=== PATIENT | male | born 1965 | race Caucasian/White ===

== ENCOUNTER 2019-03-26 05:01 | Inpatient (IN) ==
--- NOTE | 2019-03-19 16:33 | PAT Medication Instructions ---
Medication Instructions Date of Service March 19, 2019 Home Medications adalimumab [Humira] 40 mg SUBCUT DIRECTED ibuprofen 200 mg PO QID PRN lisinopril-hydrochlorothiazide 1 tab PO QAM tamsulosin 0.4 mg PO QPM ASK your surgeon for instructions ibuprofen 200 mg PO QID PRN ASK your prescriber and surgeon adalimumab [Humira] 40 mg SUBCUT DIRECTED DO NOT take the morning of surgery lisinopril-hydrochlorothiazide 1 tab PO QAM Take evening before surgery tamsulosin 0.4 mg PO QPM Other Notes If you have any questions please call us at [phone] or [phone] or [phone] or [phone]
--- NOTE | 2019-03-20 14:01 | Anesthesiology Consultation ---
Date of Service March 20, 2019 Assessment & Plan (1) Encounter for pre-operative examination: Chart Review Chart Review: Acceptable Risk for Surgery, Pending: Refer to Additional Notes / Consult section (preop testing (labs, EKG, CXR)) and Patient seen in Pre Admission Testing Consults Requested none Teaching & Discussion Pre-Anesthesia Teaching/Discussion Notes: Instructed NPO after midnight before surgery,except medications with 15 cc of water. Medication instructions provided according to the PAT guidelines. ASA ASA3 Proposed Anesthesia Anesthesia Type: General and MAC Spinal History Surgery Operation Date: 03/26/19 09:05 Proposed Procedures p Left Anterior Total Hip Arthroplasty - Sid Spangler, Height/Weight Height: 5 ft 10 in Weight: 108.4 kg Allergies Allergy/AdvReac Type Severity Reaction Status Date / Time Penicillins Allergy Unknown CHILD - Verified 03/18/19 14:14 UNKNOWN Medications Home Medications Medication Instructions Recorded Confirmed Last Taken adalimumab [Humira] 40 mg SUBCUT DIRECTED 03/18/19 03/18/19 Unknown ibuprofen 200 mg PO QID PRN 03/18/19 03/18/19 Unknown lisinopril-hydrochlorothiazide 1 tab PO QAM 03/18/19 03/18/19 Unknown tamsulosin 0.4 mg PO QPM 03/18/19 03/18/19 Unknown Past Medical History Medical History History of nocturia no recent issues Hypertension Obesity Osteoarthritis Psoriatic arthritis on Humira Exercise / Class Metabolic Activity III < 4 Walking/Shop/Light housework Past Surgical History Surgical History History of arthroscopic knee surgery RIGHT AND LEFT History of vasectomy Hx of tonsillectomy Past Anesthesia History No Hx of Anesthesia Complications and No Family Hx of Anesthesia Complications Mother: "Goes nuts" with anesthesia emergence ? History of PONV No Hx of PONV and Hx of Motion Sickness (rare, "mild" reaction) Social History Smoking Status: Never smoker Do You Dip or Chew Tobacco: Yes (1 can/day- Advised NPO*) Hx Alcohol Use: No Hx Substance Use: No Review of Systems Patient denies chest pain, shortness of breath, dyspnea on exertion, reflux, cough, wheezing, palpitations. Physical Exam Vital Signs VITALS BP 131/86 P 78 TEMP 98.0 SP02 97%RA RESP 18 PHYSICAL Full neck and c-spine range of motion. Full TMJ range of motion. TMD 3 finger breaths Mallampati Score 3 Dentition: missing molars Lungs: clear throughout to auscultation Cardiac: regular rate and rhythm, no murmurs noted Spine: normal Carotid arteries: negative bruit Extremities: no edema Left lazy eye Testing Laboratory Results 03/20/19 14:12 03/20/19 14:12 PT 10.9 Seconds (9.0-12.0) 03/20/19 14:12 INR 1.1 (0.9-1.1) 03/20/19 14:12 APTT 26.5 Seconds (21.0-31.0) 03/20/19 14:12 Blood Type B Positive 03/20/19 14:12 Antibody Screen NEGATIVE 03/20/19 14:12 Electrocardiogram Date: 03/20/19 Findings: + NSR @ (atr 72) Chest X-Ray Date: 03/20/19 Findings: + NAD
[2019-03-20 14:48] LABS: Basophils # (auto) 0.05 K/uL (0-0.2); Basophils % (auto) 0.6 %; Eosinophils # (auto) 0.14 K/uL (0-0.5); Eosinophils % (auto) 1.8 %; Hematocrit (blood only) 43.9 % (42-52); Hemoglobin 14.6 g/dL (14.0-18.0); Immature Granulocytes # (auto) 0.02 K/uL (0.00-0.02); Immature Granulocytes % (auto) 0.3 %; Lymphocytes # (auto) 1.33 K/uL (1.2-3.4); Lymphocytes % (auto) 16.8 %; Mean Corpuscular Hemoglobin 31.1 pg (25-34); Mean Corpuscular Hgb Conc 33.3 g/dL (32-36); Mean Corpuscular Volume 93.6 fL (80-100); Mean Platelet Volume 10.6 fL (7.4-10.4); Monocytes # (auto) 0.74 K/uL (0.11-0.59); Monocytes % (auto) 9.3 %; Neutrophils # (auto) 5.65 K/uL (1.4-6.5); Neutrophils % (auto) 71.2 %; Platelet Count 225 K/uL (130-400); RDW Coefficient of Variation 12.7 % (11.5-14.5); RDW Standard Deviation 43.4 fL (36.4-46.3); Red Blood Count 4.69 M/uL (4.7-6.1); White Blood Count 7.93 K/uL (4.8-10.8)
--- NOTE | 2019-03-20 14:50 | XRay Report ---
XR chest Pre-admission PA/Lat CLINICAL HISTORY: Preoperative chest COMPARISON STUDY: No previous studies for comparison. FINDINGS: The cardiac and mediastinal contours are normal. There is no evidence of focal pulmonary co nsolidation. There is no evidence of failure. No pleural effusions are visualized.[ IMPRESSION: No active disease in the chest. Electronically signed by: Dandre Andrews M.D. 03/20/2019 2:49 PM
[2019-03-20 14:56] LABS: BUN Creatinine Ratio 21.4 (10-20); Calcium 8.9 mg/dl (8.5-10.1); Creatinine Clr Calc Pharmacy 111.9 ml/min; Est GFR (African American) 107.5; Est GFR (Non-African American) 92.7; Potassium 3.6 mmol/L (3.5-5.1)
[2019-03-20 15:01] LABS: INR 1.1 (0.9-1.1); Partial Thromboplastin Time 26.5 Seconds (21.0-31.0); Prothrombin Time 10.9 Seconds (9.0-12.0)
[2019-03-26] MEDS ORDERED: LR 15ML/HR IV SCH (06:00)
[2019-03-26] MEDS ORDERED: ROPIVACAINE 0.5% HCL/PF 150 MG, BUPIVACAINE 0.5% MPF 30 ML, EPINEPHrine 30MG/30ML (OR U... INSTIL SCH (06:00)
[2019-03-26] MEDS ORDERED: ACETAMINOPHEN 500 MG TAB PO SCH (06:00)
[2019-03-26] MEDS ORDERED: TRANEXAMIC ACID 1,000 MG **IV Pre-op IV SCH (06:00)
[2019-03-26] MEDS ORDERED: LR 60ML/HR IV SCH (06:00)
[2019-03-26] MEDS ORDERED: GABAPENTIN 600 MG DOSE PO SCH (06:00)
[2019-03-26] MEDS ORDERED: FAMOTIDINE 20 MG TAB PO SCH (06:00)
[2019-03-26] MEDS ORDERED: CEFAZOLIN 2000MG 2,000 MG/15 ML SYR IV SCH (06:00)
--- NOTE | 2019-03-26 06:18 | History & Physical Report ---
Date of Service March 26, 2019 Assessment & Plan (1) Osteoarthritis of left hip: We will proceed with a left anterior total hip arthroplasty. Postoperatively he will be started on aspirin for DVT prophylaxis. He will be kept overnight in the hospital for postop medical management. He will talk to case management about physical therapy upon discharge. Present on Admission?: Yes History of Present Illness Chief Complaint: Primary osteoarthritis of the left hip Primary Care Provider: Helga Ulrich Evita is a 53-year-old male who is been dealing with a long time history of left hip and groin pain. X-rays and clinical examination have been diagnostic for primary osteoarthritis of the left hip. After failing conservative treatment, he has elected to proceed with a left anterior total hip arthroplasty. Allergies Allergy/AdvReac Type Severity Reaction Status Date / Time Penicillins Allergy Unknown CHILD - Verified 03/26/19 05:26 UNKNOWN Home Medications Home Medications Medication Instructions Recorded Confirmed Type adalimumab [Humira] 40 mg SUBCUT DIRECTED 03/18/19 03/26/19 History ibuprofen 200 mg PO QID PRN 03/18/19 03/26/19 History lisinopril-hydrochlorothiazide 1 tab PO QAM 03/18/19 03/26/19 History tamsulosin 0.4 mg PO QPM 03/18/19 03/26/19 History Past Med/Surg History Medical History History of nocturia no recent issues Hypertension Obesity Osteoarthritis Psoriatic arthritis on Humira Surgical History History of arthroscopic knee surgery RIGHT AND LEFT History of vasectomy Hx of tonsillectomy Social History Preferred Language: Slovenian Communication Ability: Effective Beliefs That Will Affect Care: None Current Living Situation: Spouse and Family Feels Safe at Home: Yes Smoking Status: Never smoker Do You Dip or Chew Tobacco: Yes (1 can/day- Advised NPO*) ; Second Hand Exposure: Yes (SOCIALLY) ; Tobacco Cessation Education Requested by Patient: Yes Hx Alcohol Use: No Hx Substance Use: No Review of Systems All systems reviewed & are unremarkable except as noted in HPI & below Physical Exam Constitutional: WD/WN, vitals as above Eyes: PERRL, conjunctivae normal, anicteric sclerae ENMT: external ear and nose normal, oropharynx normal Neck: trachea midline, no thyromegaly Respiratory: normal respiratory effort Cardiovascular: RRR, no murmur, no edema Gastrointestinal (Abdomen): normal bowel sounds, soft, nontender, no hepatosplenomegaly Musculoskeletal: Physical examination of the left hip reveals decreased range of motion with flexion, internal and external rotation. There is significant groin pain with forced internal rotation of the hip his leg lengths are essentially equal. Psychiatric: A+Ox3, euthymic affect Results & Data Vital Signs (Past 12 Hours) Vital Signs Temp Pulse Resp BP Pulse Ox 03/26/19 05:31 36.6 C 83 18 138/91 97 Diagnostic Findings Radiographs of the left hip and pelvis demonstrate advanced osteoarthritis with joint space narrowing osteophyte formation and [id number] articulation.
[2019-03-26] MEDS ORDERED: BUPIVACAINE 0.5 % 5 MG/1 ML PF 10ML VIAL ONE (06:19)
--- NOTE | 2019-03-26 06:25 | History & Physical Bridge Note ---
Date of Service March 26, 2019 History & Physical Bridge Note I have examined the patient, reviewed the History & Physical and in the interval since the performance of the History & Physical I have noted the following changes of clinical significance: no changes noted
[2019-03-26] MEDS ORDERED: TRANEXAMIC ACID 1,000 MG **IV Intra-op IV SCH (06:30)
[2019-03-26] MEDS ORDERED: LIDOCAINE HCL 2% 2 ML VIAL/AMP(20MG/ML) INFIL ONE (06:40)
[2019-03-26] MEDS ORDERED: fentaNYL citrate 100 MCG/2 ML VIAL ONE (06:40)
[2019-03-26] MEDS ORDERED: MIDAZOLAM HCL 1 MG/ML 2ML VIAL ONE ×2 (06:40→08:40)
[2019-03-26] MEDS ORDERED: PROPOFOL IV EMULSION 10 MG/ML 20 ML VIAL IV ONE ×2 (06:40→08:54)
[2019-03-26] MEDS ORDERED: CEFAZOLIN 2,000 MG/15 ML IV PUSH IV ONE (06:50)
[2019-03-26] MEDS ORDERED: ORTHO JOINT ANESTHETIC ONE (06:52)
[2019-03-26] MEDS ORDERED: ePHEDrine sulfate 50 MG/ML AMP IV PRN (07:29)
[2019-03-26] MEDS ORDERED: fentaNYL citrate 100 MCG/2 ML VIAL IV PRN (07:29)
[2019-03-26] MEDS ORDERED: ATROPINE SULFATE 0.1 MG/ML 10ML SYR IV PRN (07:29)
[2019-03-26] MEDS ORDERED: MoRPHine SULFATE 10 MG/ML CARP/VIAL IV PRN (07:29)
[2019-03-26] MEDS ORDERED: ONDANSETRON INJ 2 MG/ML 2 ML VIAL IV PRN ×2 (07:29→10:39)
--- NOTE | 2019-03-26 08:53 | Fluoroscopy Report ---
FL hip LT 1V CLINICAL HISTORY: LEFT ANTERIOR TOTAL HIP ARTHROPLASTY COMPARISON STUDY: None. FLUOROSCOPY TIME: 49 seconds. FINDINGS: 2 fluoroscopic spot images of the left hip demonstrate a left total arthroplasty. The hardw are appears intact. No fracture or dislocation. IMPRESSION: Fluoroscopy provided for left total hip arthroplasty. Electronically signed by: John Alfredo M.D. 03/26/2019 8:52 AM
--- NOTE | 2019-03-26 09:01 | Operative Report ---
Post Operative Report Pre & Post Diagnosis Operation Date: 03/26/19 07:15 Pre-Op Diagnosis: LEFT HIP DEGENERATIVE JOINT DISEASE W/HIP PAIN Post-Op Diagnosis: LEFT HIP DEGENERATIVE JOINT DISEASE W/HIP PAIN Procedure Operation Date: 03/26/19 07:15 Actual Procedures p Left Anterior Total Hip Arthroplasty(Left) - Sid Spangler DO Surgeon Sid Spangler DO Director Occupational Sid rBewster PAC Estimated Blood Loss 300 Findings Consistent with Post-Op Diagnosis Specimens Left femoral head Complications none Disposition Disposition: Recovery Room Indications Evita is a pleasant 53-year-old male who presented my office with complaints of bilateral hip and groin pain. X-rays and clinical examination were diagnostic for primary osteoarthritis of both hips. After failing conservative treatment, he elected to proceed with a left total hip arthroplasty. Description of Procedure Implants used Biomet Taperloc total hip arthroplasty system with a size 12 high offset Taperloc stem, a 52 mm G7 cup with a 25mm screw, an E1 polyethylene liner, a 36 mm ceramic head with a -3 neck. Patient arrived at the hospital for the above procedure. They were seen in the preoperative holding area and the operative extremity was identified and signed. They were given a spinal anesthetic. They were given a preoperative antibiotic and TXA. They were taken back To the operating room and laid on the table in the supine position. The leg was brought out through a Puristst leg positioner. The hip was then prepped and draped in sterile fashion. A timeout was done and the patient in upper extremities properly identified. An anterior approach was used. Dissection was taken down through the fascia and the tensor muscle belly was retracted laterally and the rectus was retracted medially. The circumflex vessels were identified and ligated. The capsule was then incised and tagged for later repair. The femoral neck was then cut and the femoral head was removed. The acetabulum was exposed. Time was spent doing a complete circumferential labral release. Sequential reaming of the acetabulum up to a size 51 reamer was done. Final reamings were done under fluoroscopy to ensure appropriate version. A Biomet 52 mm G7 cup was then impacted into place. A single 25 mm screw was placed. The E1 polyethylene liner was then snapped into place. Surrounding soft tissues were then injected with 100 cc of an orthopedic pain control cocktail. The proximal femur was then exposed. Sequential broaching up to a size 12 broach was done. Off that broach a size 36 head with a -3 neck was trialed. The hip was reduced and fluoroscopic images showed anatomic alignment of the implants in acceptable length. The broach was removed. The final size 12 high offset Taperloc stem was then impacted into place. A ceramic 36 mm head with a -3 neck was then impacted into place in the hip was reduced. Final fluoroscopic images showed anatomic reduction of the hip. The capsule was then closed with #1 Vicryl suture. A dilute betadyne lavage was then done for 3 minutes. The joint was then irrigated with normal saline solution. The fascia was closed with #1 PDS suture. Skin was closed with 2-0 Vicryl, gabriela, and a Yanet VAC dressing. The patient was then transferred to a hospital bed and taken to the post anesthesia care unit in stable condition. They tolerated the procedure well. I attest to the content of the Intraoperative Record and any orders documented therein. Any exceptions are noted below.
--- NOTE | 2019-03-26 09:51 | XRay Report ---
XR hip 1V LT w pelvis CLINICAL HISTORY: 53 years-old Male presenting with IN PACU - A/P PELVIS and LATERAL HIP . TECHNIQUE: Frontal view of the pelvis and crosstable lateral view of the left hip were obtained. COMPARISON: 01/09/2019. FINDINGS: There has been interval total left hip arthroplasty. Associated soft tissue emphysema and overlying s kin gabriela. A wound VAC is in place. No malalignment grade no periprosthetic fracture. Visualized azael ny pelvis otherwise intact. Severe degenerative changes of the right hip. IMPRESSION: Expected postsurgical changes of total left hip arthroplasty. Electronically signed by: Clint Sanches M.D. 03/26/2019 9:50 AM
--- NOTE | 2019-03-26 10:10 | Anesthesiology Progress Note ---
Date of Service March 26, 2019 Anesthesia Post Procedure Vital Signs Vital Signs: Temp Pulse Pulse Resp BP Pulse Ox 03/26/19 10:00 36.5 C 64 16 105/73 100 03/26/19 09:50 36.6 C 64 22 111/72 100 03/26/19 09:41 36.6 C 80 16 102/59 L 99 03/26/19 05:31 36.6 C 83 18 138/91 97 Pain Intensity Left Hip: Pain Intensity: 0 Transfer of Care Handoff Completed per policy Notes Mental Status: alert / awake / arousable and participated in evaluation Patient Amnestic to Procedure: Yes Nausea / Vomiting: adequately controlled Pain: adequately controlled Airway Patency, RR, SpO2: stable & adequate BP & HR: stable & adequate Hydration State: stable & adequate Neuraxial Anesthesia: was administered and sensory block is resolving Anesthetic Complications: no major complications apparent and Pt Satisfied with anesthetic care
[2019-03-26] MEDS ORDERED: HYDROmorphone INJ 0.5 MG/0.5 ML SYR IV PRN (10:39)
[2019-03-26] MEDS ORDERED: MAGNESIUM HYDROXIDE SUSP 30 ML UDC PO PRN (10:39)
[2019-03-26] MEDS ORDERED: METOCLOPRAMIDE HCL INJ 5 MG/ML 2 ML VIAL IV PRN (10:39)
[2019-03-26] MEDS ORDERED: OXYCODONE HCL IR 5 MG TAB (IMMEDIATE RELEASE) PO PRN (10:39)
[2019-03-26] MEDS ORDERED: BISACODYL 10 MG SUPP PR PRN (10:39)
[2019-03-26] MEDS ORDERED: NALOXONE HCL 0.4 MG/1 ML VIAL/CARP IV PRN (10:39)
[2019-03-26] MEDS: SODIUM CHLORIDE 0.9% 1000ML 1,000 ML IV SCH ×2 (11:09→20:30)
[2019-03-26] MEDS: KETOROLAC 30 MG/ML VIAL IV SCH ×3 (12:03→23:57)
[2019-03-26] MEDS: ACETAMINOPHEN 500 MG TAB PO SCH ×2 (13:53→21:56)
[2019-03-26] MEDS: CEFAZOLIN 2000MG 2,000 MG/15 ML SYR IV SCH ×2 (14:07→22:11)
[2019-03-26] MEDS: DOCUSATE SODIUM 100 MG CAP PO SCH (20:32)
[2019-03-26] MEDS ORDERED: SENNA 8.6 MG TAB PO SCH (21:00)
[2019-03-26] MEDS ORDERED: TAMSULOSIN HCL 0.4 MG CAP PO SCH (21:00)
[2019-03-26] MEDS: [UNRECOGNIZED DRUG - REMARK] SCH ×3 (22:58→23:00)
[2019-03-27] MEDS: KETOROLAC 30 MG/ML VIAL IV SCH (05:43)
[2019-03-27] MEDS: ACETAMINOPHEN 500 MG TAB PO SCH (05:43)
--- NOTE | 2019-03-27 06:42 | Orthopedic Progress Note ---
Date of Service March 27, 2019 Assessment & Plan (1) Osteoarthritis of left hip: Overall he is doing very well. Is not having much pain in the left hip. He will be seen by physical therapy today for ambulation and range of motion exercises. He can be discharged home later this morning. He will follow-up with orthopedics in 2 weeks. Present on Admission?: Yes Subjective Jaycee was seen and examined at bedside this morning. Overall is doing very well. He is Cooper been up and ambulating around the nurses station. He has very little pain in his left hip. He is happy with his progress. He has no co mplaints. Physical Exam Musculoskeletal: On physical examination of his left hip, the Yanet VAC dressings to suction. His leg lengths are equal. He has active dorsiflexion and plantarflexion of his left ankle. Results & Data Vital Signs (Past 12 Hours) Vital Signs Temp Pulse Resp BP Pulse Ox 03/27/19 05:40 134/81 03/27/19 03:16 36.4 C L 68 16 160/94 H 100 03/26/19 23:15 36.7 C 59 L 18 114/78 97 03/26/19 20:36 36.5 C 60 14 146/81 H 98 Laboratory Results H & H 03/20/19 Range/Units 14:12 Hgb 14.6 (14.0-18.0) g/dL Hct 43.9 (42-52) % Coagulation 03/20/19 Range/Units 14:12 INR 1.1 (0.9-1.1) Diagnostic Findings Postoperative x-rays of the left hip show the prosthesis to be in anatomic alignment without any evidence of fracture, dislocation, or loosening. PG Care Time/CCT Total # of Minutes Spent Total Time Spent with Patient: Total time spent is greater than 50% in coordination of care (as documented) at patient's floor/unit and/or counseling patient:
[2019-03-27 06:44] LABS: Basophils # (auto) 0.02 K/uL (0-0.2); Basophils % (auto) 0.2 %; Eosinophils # (auto) 0.13 K/uL (0-0.5); Eosinophils % (auto) 1.2 %; Hemoglobin 13.6 g/dL (14.0-18.0); Immature Granulocytes # (auto) 0.02 K/uL (0.00-0.02); Immature Granulocytes % (auto) 0.2 %; Lymphocytes # (auto) 1.35 K/uL (1.2-3.4); Lymphocytes % (auto) 12.1 %; Mean Corpuscular Hgb Conc 33.2 g/dL (32-36); Mean Corpuscular Volume 93.4 fL (80-100); Mean Platelet Volume 10.6 fL (7.4-10.4); Monocytes % (auto) 8.1 %; Neutrophils # (auto) 8.74 K/uL (1.4-6.5); Neutrophils % (auto) 78.2 %; Platelet Count 195 K/uL (130-400); RDW Coefficient of Variation 12.5 % (11.5-14.5); RDW Standard Deviation 42.1 fL (36.4-46.3); Red Blood Count 4.39 M/uL (4.7-6.1); White Blood Count 11.16 K/uL (4.8-10.8)
[2019-03-27] MEDS ORDERED: ASPIRIN 81 MG ECTAB PO SCH (06:44)
--- NOTE | 2019-03-27 06:44 | Discharge Summary ---
Date of Service March 27, 2019 Admission HPI Per Admitting Provider Evita is a 53-year-old male who is been dealing with a long time history of left hip and groin pain. X-rays and clinical examination have been diagnostic for primary osteoarthritis of the left hip. After failing conservative treatment, he has elected to proceed with a left anterior total hip arthroplasty. Principal Diagnosis Left total hip arthroplasty Discharge Data Allergies Allergy/AdvReac Type Severity Reaction Status Date / Time Penicillins Allergy Unknown CHILD - Verified 03/26/19 05:26 UNKNOWN Consultations 03/27/19 08:00 Consult Case Management - Discharge Planning Routine Procedures Performed Operation Date: 03/26/19 07:15 Actual Procedures p Left Anterior Total Hip Arthroplasty(Left) - Sid Spangler DO Ordered Studies 03/26/19 07:00 FL fluoroscopy <1hr Routine FL hip LT 1V Routine Hospital Course (1) Osteoarthritis of left hip: On March 26, 2019 Jaycee arrived at [facility] and underwent a left anterior total hip arthroplasty without complication. He had a spinal anesthetic. Postoperatively he was started on aspirin for DVT prophylaxis and discharged to general orthopedic floors. His hospital course is uneventful. On postop day #1 his H&H was stable and his pain was well controlled. He was able to participate well with physical therapy doing ambulation and range of motion exercises. He was then discharged home with physical therapy. He will follow-up with orthopedics in 2 weeks. Total Time Total Time Spent Total Time Spent (In Minutes): 20 Discharge Plan Discharge Items Patient Disposition: Home - Home Health Services Reason For Visit: LEFT HIP DEGENERATIVE JOINT DISEASE W/HIP PAIN Discharge Diagnosis: Left total hip arthroplasty Activity: As commented below Non-emergency contact: Surgeon Call non-emergency contact if: your wound has increased redness and your wound has increased drainage Follow-up/Referrals: Helga Ulrich CRNP [Primary Care Provider] - Diet: Regular Addtl Attending Provider Instructions: Activity and Therapy Recommendations: * If you are using [facility] then therapy will be provided at your home until they feel you have accomplished all of your goals. * If you are using [facility] then Physical Therapy will be provided until they feel you are ready to start Outpatient Physical Therapy. * If you are not using home therapy then Outpatient Physical Therapy should start about 3-5 days from your day of surgery. Therapy will last about 6-10 weeks * You were shown a series of exercises in the hospital. Do these exercises three times each day including the exercises you were shown in physical therapy. * Get up and walk several times each day.~ For the first four weeks, try not to stand or walk for more than one hour at a time. If you do stand or walk for more than one hour, you will not hurt anything, but your leg will likely swell.~~ * As you feel comfortable, you may change from the walker or crutches to a cane and~then to independent walking. Medications: * Narcotic You will likely be sent home from the hospital with a prescription for the narcotic pain medication that worked best throughout your stay. * Aspirin Most patients will be required to take Aspirin 81mg twice a day for 6 weeks after surgery. This is obtained [id number] and a prescription is not necessary. * Other medications may be prescribed for specific circumstances. If you have any questions, please call the office at . * Resume previous home medications unless otherwise instructed TEDs/Elastic Stockings: The white elastic stockings help limit swelling and prevent blood clots from forming in your legs. The more you wear them, the more they work. Wear them for six weeks. Dressing Care: You will likely have a purple VAC dressing after surgery. This dressing will keep the incision dry and promote early healing. After about 7 days the batteries will wear out and the VAC will lose suction. Simply remove the dressing at that time and throw everything away, including the small suction machine. Then, you may leave the gabriela open to air or cover them with a dry dressing so they do not rub on your pants. The gabriela will be removed at your 2 week follow-up appointment. Showering: You may shower immediately with the purple VAC dressing. Let the shower spray hit your opposite side and slowly pat the plastic dry. Do not soak the dressing. After the dressing is removed you may shower normally with the gabriela exposed. Let soapy water run over the gabriela and pat them dry. Things To Watch For: * Drainage from the incision site that occurs more than one week after your surgery. * Increased redness at the incision site. * Fever above 102 degrees Fahrenheit. * Unusual chest pain or shortness of breath. * Call [facility] at with any of the above problems Follow-Up Visit: Follow-up with Dr. Spangler 2-3 weeks after your day of surgery. An appointment was probably scheduled when you signed-up for surgery in the office. If you have any questions call Office Instructions: More detailed instructions as well as Frequently Asked Questions were provided in a folder by our office when you signed-up for surgery. Please review these instructions when you get home. If you have any further questions or concerns, please feel free to call the office at [phone] Pending Studies at Discharge: No Stand-Alone Forms: [facility] Medications and DC Order Prescriptions: New oxycodone 5 mg Tablet 5 mg PO Q4H PRN (Reason: pain) Qty: 30 RF: 0 aspirin 81 mg tablet,delayed release (DR/EC) 81 mg PO BID Qty: 84 RF: 0 Continued lisinopril-hydrochlorothiazide 20-12.5 mg Tablet 1 tab PO QAM RF: 0 tamsulosin 0.4 mg Capsule 0.4 mg PO QPM RF: 0 ibuprofen 200 mg Tablet 200 mg PO QID PRN (Reason: Pain) RF: 0 Humira 20 mg/0.4 mL Syringe Kit 40 mg SUBCUT DIRECTED RF: 0 Discharge Orders: Discharge Order (Routine); Ordered 03/27/19 Ordered By: Sid Spangler Admission Data Admit Date/Time: 03/26/19 09:27 Attending Provider: Sid Spangler Admit Provider: Sid Spangler Primary Care Provider: Helga Ulrich
[2019-03-27 07:15] LABS: BUN Creatinine Ratio 22.6 (10-20); Calcium 8.5 mg/dl (8.5-10.1); Creatinine Clr Calc Pharmacy 101.4 ml/min; Est GFR (African American) 96.1; Est GFR (Non-African American) 82.9; Potassium 3.8 mmol/L (3.5-5.1)
[2019-03-27] MEDS ORDERED: LISINOPRIL/HCTZ 20/12.5MG 1 TAB TAB PO SCH (09:00)
[2019-03-27] MEDS ORDERED: MULTIVITAMIN TAB PO SCH (09:00)
[2019-03-27] MEDS: DOCUSATE SODIUM 100 MG CAP PO SCH (09:06)
--- NOTE | 2019-03-27 09:33 | Anesthesiology Progress Note ---
Date of Service March 27, 2019 Anesthesia Post Procedure Vital Signs Vital Signs: Temp Pulse Pulse Resp BP Pulse Ox 03/27/19 07:49 36.7 C 72 16 131/77 98 03/27/19 05:40 134/81 03/27/19 03:16 36.4 C L 68 16 160/94 H 100 03/26/19 23:15 36.7 C 59 L 18 114/78 97 03/26/19 20:36 36.5 C 60 14 146/81 H 98 03/26/19 15:10 36.6 C 66 18 116/76 98 03/26/19 13:22 66 18 115/73 97 03/26/19 12:29 66 18 107/68 97 03/26/19 11:24 59 L 18 109/71 98 03/26/19 11:03 66 18 113/75 97 03/26/19 10:30 36.8 C 66 18 106/67 99 03/26/19 10:10 36.5 C 60 21 104/77 100 03/26/19 10:00 36.5 C 64 16 105/73 100 03/26/19 09:50 36.6 C 64 22 111/72 100 03/26/19 09:41 36.6 C 80 16 102/59 L 99 Pain Intensity Left Hip: Pain Intensity: 2 Notes Mental Status: alert / awake / arousable and participated in evaluation Patient Amnestic to Procedure: Yes Nausea / Vomiting: adequately controlled Pain: adequately controlled Airway Patency, RR, SpO2: stable & adequate Hydration State: stable & adequate Neuraxial Anesthesia: was administered and sensory block is resolving Anesthetic Complications: no major complications apparent and Pt Satisfied with anesthetic care
== END 2019-03-27 11:33 | disposition home or self-care (01) | DRG 470 ==
LOC: ASU 05:01 → 3E 09:27

== ENCOUNTER 2019-05-14 05:00 | Inpatient (IN) ==
--- NOTE | 2019-04-23 08:36 | PAT Medication Instructions ---
Medication Instructions Date of Service April 23, 2019 Home Medications Medication Instructions Recorded aspirin 81 mg PO BID #84 tab 03/27/19 Humira 40 mg SUBCUT DIRECTED ibuprofen 200 mg PO QID PRN lisinopril-hydrochlorothiazide 1 tab PO QAM tamsulosin 0.4 mg PO QPM aspirin 81 mg PO BID multivitamin 1 cap PO QPM ASK your surgeon for instructions ibuprofen 200 mg PO QID PRN ASK your prescriber and surgeon Humira 40 mg SUBCUT DIRECTED aspirin 81 mg PO BID DO NOT take the morning of surgery lisinopril-hydrochlorothiazide 1 tab PO QAM multivitamin 1 cap PO QPM Take evening before surgery tamsulosin 0.4 mg PO QPM multivitamin 1 cap PO QPM Other Notes If you have any questions please call us at [phone] or [phone] or [phone] or [phone]
--- NOTE | 2019-04-24 08:42 | Anesthesiology Consultation ---
Date of Service April 24, 2019 Assessment & Plan Chart Review Chart Review: Pending: Refer to Additional Notes / Consult section (pending preop testing (labs)) and Patient seen in Pre Admission Testing Teaching & Discussion Pre-Anesthesia Teaching/Discussion Notes: Instructed NPO after midnight before surgery,except medications with 15 cc of water. Medication instructions provided according to the PAT guidelines. History Surgery Operation Date: 05/14/19 09:05 Proposed Procedures p Right Anterior Total Hip Arthroplasty - Sid Spangler DO Height/Weight Height: 5 ft 10 in Weight: 111.8 kg Allergies Allergy/AdvReac Type Severity Reaction Status Date / Time Penicillins Allergy Unknown CHILD - Verified 04/22/19 08:34 UNKNOWN Medications Home Medications Medication Instructions Recorded Confirmed Last Taken Humira 40 mg SUBCUT DIRECTED 03/18/19 04/22/19 03/05/19 ibuprofen 200 mg PO QID PRN 03/18/19 04/22/19 03/25/19 17:00 lisinopril-hydrochlorothiazide 1 tab PO QAM 03/18/19 04/22/19 03/25/19 09:00 tamsulosin 0.4 mg PO QPM 03/18/19 04/22/19 03/25/19 18:30 aspirin 81 mg PO BID #84 tab 03/27/19 04/22/19 Unknown multivitamin 1 cap PO QPM 04/22/19 04/22/19 Unknown Past Medical History Medical History History of nocturia no recent issues Hypertension Obesity Osteoarthritis Psoriatic arthritis on Humira Exercise / Class Metabolic Activity II 4-5 Yardwork/Stairs/Walk up hill Past Surgical History Surgical History History of arthroscopic knee surgery RIGHT AND LEFT History of left hip replacement Left LAN: 03/26/19: SAB at [facility]. No anesthesia complications per anesthesia progress note. History of vasectomy Hx of tonsillectomy Past Anesthesia History No Hx of Anesthesia Complications and No Family Hx of Anesthesia Complications History of PONV No Hx of PONV and No Hx of Motion Sickness Social History Smoking Status: Never smoker Do You Dip or Chew Tobacco: Yes (1 CAN A DAY/ADVISED NPO) Hx Alcohol Use: No Hx Substance Use: No substance use type: does not use Review of Systems Patient denies chest pain, shortness of breath, dyspnea on exertion, reflux, cough, wheezing, palpitations. Physical Exam Vital Signs VITALS BP 128/81 P 83 TEMP 97.8 SP02 95%RA RESP 18 PHYSICAL Full neck and c-spine range of motion. Full TMJ range of motion. TMD 3 finger breaths Mallampati Score 3 Dentition: missing molars Lungs: clear throughout to auscultation Cardiac: regular rate and rhythm, no murmurs noted Spine: normal Carotid arteries: negative bruit Extremities: no edema Left lazy eye Testing Laboratory Results 03/27/19 SODIUM 137 POTASSIUM 3.8 CHLORIDE 103 CO2 27 BUN 23 CREATININE 1.02 GLUCOSE 136 03/20/19 PT 10.9 PTT 26.5 INR 1.1 Electrocardiogram Date: 03/20/19 Findings: + NSR @ (72) Chest X-Ray Date: 03/20/19 Findings: + NAD
[2019-04-24 10:04] LABS: Basophils # (auto) 0.04 K/uL (0-0.2); Basophils % (auto) 0.5 %; Eosinophils # (auto) 0.14 K/uL (0-0.5); Eosinophils % (auto) 1.8 %; Hematocrit (blood only) 43.7 % (42-52); Hemoglobin 14.9 g/dL (14.0-18.0); Immature Granulocytes # (auto) 0.04 K/uL (0.00-0.02); Immature Granulocytes % (auto) 0.5 %; Lymphocytes # (auto) 1.18 K/uL (1.2-3.4); Mean Corpuscular Hemoglobin 31.6 pg (25-34); Mean Corpuscular Hgb Conc 34.1 g/dL (32-36); Mean Corpuscular Volume 92.8 fL (80-100); Mean Platelet Volume 10.4 fL (7.4-10.4); Monocytes # (auto) 0.57 K/uL (0.11-0.59); Monocytes % (auto) 7.2 %; Neutrophils # (auto) 5.91 K/uL (1.4-6.5); Platelet Count 231 K/uL (130-400); RDW Coefficient of Variation 12.7 % (11.5-14.5); RDW Standard Deviation 42.8 fL (36.4-46.3); Red Blood Count 4.71 M/uL (4.7-6.1); White Blood Count 7.88 K/uL (4.8-10.8)
--- NOTE | 2019-05-13 20:03 | History & Physical Report ---
Date of Service May 13, 2019 Assessment & Plan (1) Osteoarthritis of right hip: We will proceed with a right anterior total hip arthroplasty. Postoperatively he will be started on aspirin for DVT prophylaxis. He will be kept overnight in the hospital for postoperative medical management. He plans to use [facility] upon discharge. Present on Admission?: Yes History of Present Illness Chief Complaint: Primary osteoarthritis of the right hip Primary Care Provider: Helga Bradley Serg Champion is a pleasant 54-year-old male who underwent a left total hip arthroplasty about 8 weeks ago. He is done very well with that. Unfortunately he is having a lot of right hip pain. X-rays and clinical examination are diagnostic for primary osteoarthritis of the right hip. After failing conservative treatment, he is elected to proceed with a right anterior total hip arthroplasty. Allergies Allergy/AdvReac Type Severity Reaction Status Date / Time Penicillins Allergy Unknown CHILD - Verified 04/22/19 08:34 UNKNOWN Home Medications Home Medications Medication Instructions Recorded Confirmed Type Humira 40 mg SUBCUT DIRECTED 03/18/19 04/22/19 History ibuprofen 200 mg PO QID PRN 03/18/19 04/22/19 History lisinopril-hydrochlorothiazide 1 tab PO QAM 03/18/19 04/22/19 History tamsulosin 0.4 mg PO QPM 03/18/19 04/22/19 History aspirin 81 mg PO BID #84 tab 03/27/19 04/22/19 Rx multivitamin 1 cap PO QPM 04/22/19 04/22/19 History Past Med/Surg History Medical History History of nocturia no recent issues Hypertension Obesity Osteoarthritis Psoriatic arthritis on Humira Surgical History History of arthroscopic knee surgery RIGHT AND LEFT History of left hip replacement Left LAN: 03/26/19: SAB at [facility]. No anesthesia complications per anesthesia progress note. History of vasectomy Hx of tonsillectomy Social History Preferred Language: German Communication Ability: Effective Pattern Maker Required: No Beliefs That Will Affect Care: None marital status: Current Living Situation: Spouse and Family Other Information That Helps Us Care for You: No Feels Safe at Home: Yes Safety Concerns: Feels Safe At This Time Smoking Status: Never smoker Do You Dip or Chew Tobacco: Yes (1 CAN A DAY/ADVISED NPO) ; Second Hand Exposure: Yes (SOCIALLY) ; Tobacco Cessation Education Requested by Patient: No Hx Alcohol Use: No Hx Substance Use: No Review of Systems All systems reviewed & are unremarkable except as noted in HPI & below Physical Exam Constitutional: WD/WN, vitals as above Eyes: PERRL, conjunctivae normal, anicteric sclerae ENMT: external ear and nose normal, oropharynx normal Neck: trachea midline, no thyromegaly Respiratory: normal respiratory effort Cardiovascular: RRR, no murmur, no edema Gastrointestinal (Abdomen): normal bowel sounds, soft, nontender, no hepatosplenomegaly Musculoskeletal: Physical examination of the right hip reveals decreased range of motion with flexion, internal and external rotation. There is significant groin pain with forced internal rotation of the hip his leg lengths are ess entially equal. Psychiatric: A+Ox3, euthymic affect Results & Data Diagnostic Findings Radiographs of the right hip and pelvis demonstrate advanced osteoarthritis with joint space narrowing osteophyte formation and [id number] articulation.
[2019-05-14] MEDS ORDERED: GABAPENTIN 900 MG DOSE PO SCH (06:00)
[2019-05-14] MEDS ORDERED: CEFAZOLIN 2000MG 2,000 MG/15 ML SYR IV SCH ×2 (06:00→10:21)
[2019-05-14] MEDS ORDERED: FAMOTIDINE 20 MG TAB PO SCH (06:00)
[2019-05-14] MEDS ORDERED: LR 15ML/HR IV SCH (06:00)
[2019-05-14] MEDS ORDERED: ACETAMINOPHEN 500 MG TAB PO SCH (06:00)
[2019-05-14] MEDS ORDERED: LR 60ML/HR IV SCH (06:00)
[2019-05-14] MEDS ORDERED: BUPIVACAINE 0.5 % 5 MG/1 ML PF 10ML VIAL ONE (06:06)
[2019-05-14] MEDS: TRANEXAMIC ACID 1,000 MG **IV Pre-op IV SCH ×2 (06:07→11:02)
[2019-05-14] MEDS ORDERED: TRANEXAMIC ACID 1,000 MG **IV Intra-op IV SCH (06:30)
[2019-05-14] MEDS ORDERED: PROPOFOL IV EMULSION 10 MG/ML 20 ML VIAL IV ONE (06:45)
[2019-05-14] MEDS ORDERED: MIDAZOLAM HCL 1 MG/ML 2ML VIAL ONE ×3 (06:45→07:21)
[2019-05-14] MEDS ORDERED: LIDOCAINE HCL 2% 2 ML VIAL/AMP(20MG/ML) INFIL ONE (06:45)
[2019-05-14] MEDS ORDERED: fentaNYL citrate 100 MCG/2 ML VIAL ONE (06:46)
--- NOTE | 2019-05-14 06:51 | History & Physical Bridge Note ---
Date of Service May 14, 2019 History & Physical Bridge Note I have examined the patient, reviewed the History & Physical and in the interval since the performance of the History & Physical I have noted the following changes of clinical significance: no changes noted
[2019-05-14] MEDS ORDERED: ORTHO JOINT ANESTHETIC ONE (06:58)
[2019-05-14] MEDS ORDERED: ePHEDrine sulfate 50 MG/ML AMP IV PRN (07:28)
[2019-05-14] MEDS ORDERED: ATROPINE SULFATE 0.1 MG/ML 10ML SYR IV PRN (07:28)
[2019-05-14] MEDS ORDERED: ROPIVACAINE 0.5% HCL/PF 150 MG, BUPIVACAINE 0.5% MPF 30 ML, EPINEPHrine 30MG/30ML (OR U... INSTIL SCH (07:30)
--- NOTE | 2019-05-14 08:47 | Operative Report ---
Post Operative Report Pre & Post Diagnosis Operation Date: 05/14/19 07:15 Pre-Op Diagnosis: Right Hip Degenerative Joint Disease Post-Op Diagnosis: Right Hip Degenerative Joint Disease I identified the patient and participated in the time-out.: Yes Procedure Operation Date: 05/14/19 07:15 Actual Procedures p Right Anterior Total Hip Arthroplasty(Right) - Sid Spangler DO Surgeon Sid Spangler DO Product Safety Expert Sid Brewster PAC Estimated Blood Loss 200 Findings Consistent with Post-Op Diagnosis Specimens Right femoral head Complications none Disposition Disposition: Recovery Room Indications Jaycee is a pleasant 54-year-old male who presented my office with chronic increasing bilateral hip pain. X-rays and clinical examination were diagnostic for primary osteoarthritis of both hips. He underwent a left anterior total hip arthroplasty about 6 weeks ago. He did well with that. He is now ready to proceed with a right anterior total hip arthroplasty. Description of Procedure Implants used Biomet Taperloc total hip arthroplasty system with a size 12 high offset Taperloc stem, a 52 mm G7 cup with a 25mm screw, an E1 polyethylene liner, a 36 mm ceramic head with a 0 neck. Patient arrived at the hospital for the above procedure. They were seen in the preoperative holding area and the operative extremity was identified and signed. They were given a spinal anesthetic. They were given a preoperative antibiotic and TXA. They were taken back To the operating room and laid on the table in the supine position. The leg was brought out through a Puristst leg positioner. The hip was then prepped and draped in sterile fashion. A timeout was done and the patient and the operative extremity was properly identified. An anterior approach was used. Dissection was taken down through the fascia and the tensor muscle belly was retracted laterally and the rectus was retracted medially. The circumflex vessels were identified and ligated. The capsule was then incised and tagged for later repair. The femoral neck was then cut and the femoral head was removed. The acetabulum was exposed. Time was spent doing a complete circumferential labral release. Sequential reaming of the acetabulum up to a size 51 reamer was done. Final reamings were done under fluoroscopy to ensure appropriate version. A Biomet 52 mm G7 cup was then impacted into place. A single 25 mm screw was placed. The E1 polyethylene liner was then snapped into place. Surrounding soft tissues were then injected with 100 cc of an orthopedic pain control cocktail. The proximal femur was then exposed. Sequential broaching up to a size 12 broach was done. Off that broach a size 36 head with a 0 neck was trialed. The hip was reduced and fluoroscopic images showed anatomic alignment of the implants in acceptable length. The broach was removed. The final size 12 high offset Taperloc stem was then impacted into place. A ceramic 36 mm head with a 0 neck was then impacted into place in the hip was reduced. Final fluoroscopic images showed anatomic reduction of the hip. The capsule was then closed with #1 Vicryl suture. A dilute betadyne lavage was then done for 3 minutes. The joint was then irrigated with normal saline solution. The fascia was closed with #1 PDS suture. Skin was closed with 2-0 Vicryl, gabriela, and a Yanet VAC dressing. The patient was then transferred to a hospital bed and taken to the post anesthesia care unit in stable condition. They tolerated the procedure well. I attest to the content of the Intraoperative Record and any orders documented therein. Any exceptions are noted below.
--- NOTE | 2019-05-14 09:09 | Fluoroscopy Report ---
FL hip RT 1V CLINICAL HISTORY: 54 years-old Male presenting with RT ANTERIOR HIP REPLACEMENT. TECHNIQUE: 2 fluoroscopic image(s) recorded as part of an intraoperative procedure. COMPARISON: 05/01/2019. FINDINGS/IMPRESSION: Post surgical changes of total right hip arthroplasty. No gross periprosthetic fracture. No malalignm ent. Please see surgical report for further details. Fluoroscopy dosage (mGy): 6.83. Fluoroscopy time: 35.1 seconds. Number or time of high level fluoroscopy (HLF), digital spot, or digital subtraction images: 0. Electronically signed by: Clint Sanches M.D. 05/14/2019 9:08 AM
[2019-05-14] MEDS ORDERED: PHENYLEPHRINE HCL 10 MG/ML VIAL ONE (09:30)
--- NOTE | 2019-05-14 09:43 | XRay Report ---
XR hip 1V RT w pelvis CLINICAL HISTORY: Postop hip arthroplasty. Arthritic change. COMPARISON: 03/26/2019 DISCUSSION: The total left hip arthroplasty remains unchanged in appearance. There is evidence for in terval total right hip arthroplasty. The acetabular femoral components appear well seated. There is n o dislocation. There are overlying skin gabriela. IMPRESSION: Postsurgical changes of an interval right total hip arthroplasty Electronically signed by: Dandre Andrews M.D. 05/14/2019 9:41 AM
[2019-05-14] MEDS ORDERED: METOCLOPRAMIDE HCL INJ 5 MG/ML 2 ML VIAL IV PRN (10:21)
[2019-05-14] MEDS ORDERED: HYDROmorphone INJ 0.5 MG/0.5 ML SYR IV PRN (10:21)
[2019-05-14] MEDS ORDERED: SODIUM CHLORIDE 0.9% 1000ML 1,000 ML IV SCH (10:21)
[2019-05-14] MEDS ORDERED: OXYCODONE HCL IR 5 MG TAB (IMMEDIATE RELEASE) PO PRN (10:21)
[2019-05-14] MEDS ORDERED: MAGNESIUM HYDROXIDE SUSP 30 ML UDC PO PRN (10:21)
[2019-05-14] MEDS ORDERED: ONDANSETRON INJ 2 MG/ML 2 ML VIAL IV PRN (10:21)
[2019-05-14] MEDS ORDERED: NALOXONE HCL 0.4 MG/1 ML VIAL/CARP IV PRN (10:21)
[2019-05-14] MEDS ORDERED: BISACODYL 10 MG SUPP PR PRN (10:21)
[2019-05-14] MEDS: KETOROLAC 30 MG/ML VIAL IV SCH ×3 (11:15→22:22)
--- NOTE | 2019-05-14 11:36 | Anesthesiology Progress Note ---
Date of Service May 14, 2019 Anesthesia Post Procedure Vital Signs Vital Signs: Temp Pulse Pulse Resp BP BP Pulse Ox 05/14/19 11:11 63 16 114/76 100 05/14/19 10:37 59 L 16 104/71 100 05/14/19 10:10 36.5 C 66 16 110/67 98 05/14/19 09:55 63 18 105/73 95 05/14/19 09:45 36.4 C L 63 18 107/75 100 05/14/19 09:35 70 24 100/67 94 05/14/19 09:25 72 16 101/74 97 05/14/19 09:19 36.3 C L 71 20 98/69 L 97 05/14/19 05:44 37 C 74 20 132/85 96 Pain Intensity Right Hip: Pain Intensity: 1 Transfer of Care Handoff Completed per policy Notes Mental Status: alert / awake / arousable and participated in evaluation Patient Amnestic to Procedure: Yes Nausea / Vomiting: adequately controlled Pain: adequately controlled Airway Patency, RR, SpO2: stable & adequate BP & HR: stable & adequate Hydration State: stable & adequate Neuraxial Anesthesia: was administered and sensory block is resolving Anesthetic Complications: no major complications apparent
[2019-05-14] MEDS: ACETAMINOPHEN 500 MG TAB PO SCH ×2 (13:43→22:22)
[2019-05-14] MEDS ORDERED: INFLUENZA VIRUS QUAD VACCINE 0.5 ML SYR IM ONE (14:00)
[2019-05-14] MEDS ORDERED: INFLUENZA ADMINISTRATION CHARGE ONE (14:00)
[2019-05-14] MEDS: CEFAZOLIN 2000MG 2,000 MG/15 ML SYR IV SCH ×2 (15:47→22:22)
[2019-05-14] MEDS: DOCUSATE SODIUM 100 MG CAP PO SCH (20:06)
[2019-05-14] MEDS: ASPIRIN 81 MG ECTAB PO SCH (20:07)
[2019-05-14] MEDS ORDERED: SENNA 8.6 MG TAB PO SCH (21:00)
[2019-05-14] MEDS ORDERED: TAMSULOSIN HCL 0.4 MG CAP PO SCH (21:00)
[2019-05-15] MEDS: KETOROLAC 30 MG/ML VIAL IV SCH (05:51)
[2019-05-15] MEDS: ACETAMINOPHEN 500 MG TAB PO SCH (05:51)
[2019-05-15 06:23] LABS: Basophils # (auto) 0.02 K/uL (0-0.2); Basophils % (auto) 0.2 %; Eosinophils # (auto) 0.13 K/uL (0-0.5); Hematocrit (blood only) 40.8 % (42-52); Hemoglobin 13.4 g/dL (14.0-18.0); Immature Granulocytes # (auto) 0.06 K/uL (0.00-0.02); Immature Granulocytes % (auto) 0.5 %; Lymphocytes # (auto) 1.41 K/uL (1.2-3.4); Lymphocytes % (auto) 11.3 %; Mean Corpuscular Hgb Conc 32.8 g/dL (32-36); Mean Corpuscular Volume 94.4 fL (80-100); Mean Platelet Volume 10.9 fL (7.4-10.4); Monocytes % (auto) 9.6 %; Neutrophils # (auto) 9.66 K/uL (1.4-6.5); Neutrophils % (auto) 77.4 %; Platelet Count 211 K/uL (130-400); RDW Coefficient of Variation 12.9 % (11.5-14.5); RDW Standard Deviation 44.5 fL (36.4-46.3); Red Blood Count 4.32 M/uL (4.7-6.1); White Blood Count 12.48 K/uL (4.8-10.8)
[2019-05-15] MEDS: DOCUSATE SODIUM 100 MG CAP PO SCH (06:50)
[2019-05-15] MEDS: ASPIRIN 81 MG ECTAB PO SCH (06:50)
--- NOTE | 2019-05-15 06:55 | Orthopedic Progress Note ---
Date of Service May 15, 2019 Assessment & Plan (1) Osteoarthritis of right hip: Well with his right hip. He is already up and ambulating around his room. He has some pain medications at home and does not need to be discharged on any. He has aspirin at home as well. He is very concerned with his at this point. He just had his other hip replaced about 6 weeks ago and he knows what to do postoperatively. I am going to go ahead and discharge him so he can go to the emergency room and see his . I will follow him up in the office in about 2 weeks. Present on Admission?: Yes Subjective Jaycee was seen and examined at bedside this morning. He is up and ambulating in the room. Unfortunately his had a stroke last night and is coming via ambulance to the emergency room now. He is very concerned about that. He is not having much pain in the right hip. He is happy with his progress with his hip. He has no complaints. Physical Exam Musculoskeletal: On physical examination of the right hip, the Yanet VAC dressing is to suction. His leg lengths are equal. He has active dorsiflexion and plantarflexion of his right ankle. Results & Data Vital Signs (Past 12 Hours) Vital Signs Temp Pulse Pulse Resp BP BP Pulse Ox 05/15/19 06:49 92 H 180/96 H 05/15/19 03:22 36.4 C L 63 16 126/81 98 05/14/19 23:15 36.7 C 61 16 129/78 98 05/14/19 20:19 36.5 C 67 18 118/83 98 Laboratory Results H & H 04/24/19 05/15/19 Range/Units 09:00 05:33 Hgb 14.9 13.4 L (14.0-18.0) g/dL Hct 43.7 40.8 L (42-52) % Diagnostic Findings Postoperative x-rays of the right hip show the prosthesis to be in anatomic alignment without any evidence of fracture, dislocation, or loosening. PG Care Time/CCT Total # of Minutes Spent Total Time Spent with Patient: Total time spent is greater than 50% in coordination of care (as documented) at patient's floor/unit and/or counseling patient:
--- NOTE | 2019-05-15 06:57 | Discharge Summary ---
Date of Service May 15, 2019 Admission HPI Per Admitting Provider Jaycee is a pleasant 54-year-old male who underwent a left total hip arthroplasty about 8 weeks ago. He is done very well with that. Unfortunately he is having a lot of right hip pain. X-rays and clinical examination are diagnostic for primary osteoarthritis of the right hip. After failing conservative treatment, he is elected to proceed with a right anterior total hip arthroplasty. Principal Diagnosis Right total hip arthroplasty Discharge Data Allergies Allergy/AdvReac Type Severity Reaction Status Date / Time Penicillins Allergy Unknown CHILD - Verified 04/22/19 08:34 UNKNOWN Consultations 05/15/19 08:00 Consult Case Management - Discharge Planning Routine Procedures Performed Operation Date: 05/14/19 07:15 Actual Procedures p Right Anterior Total Hip Arthroplasty(Right) - Sid Spangler DO Ordered Studies 05/14/19 07:15 FL fluoroscopy <1hr Routine FL hip RT 1V Routine Hospital Course (1) Osteoarthritis of right hip: On May 14, [address] [facility] and underwent a right anterior total hip arthroplasty without complication. He had a spinal anesthetic. Postoperatively he was started on aspirin for DVT prophylaxis and discharged to general orthopedic floors. His hospital course was uneventful. On postop day #1 his H&H was stable and his pain was well controlled. When I saw him in the morning he was pacing around his room. He was not having much hip pain. Unfortunately his was coming to the emergency room as a stroke alert. We the then did an urgent discharge so that he could go down and be with his . His hip seems to be doing fine. [facility] with [facility]. He will follow-up with orthopedics in 2 weeks. Total Time Total Time Spent Total Time Spent (In Minutes): 20 Discharge Plan Discharge Items Patient Disposition: Home - Home Health Services Reason For Visit: Right Hip Degenerative Joint Disease Discharge Diagnosis: Right total hip arthroplasty Activity: As commented below Non-emergency contact: Surgeon Call non-emergency contact if: your wound has increased redness and your wound has increased drainage Follow-up/Referrals: Helga Ulrich CRNP [Primary Care Provider] - Diet: Regular Addtl Attending Provider Instructions: Activity and Therapy Recommendations: * If you are using [facility] then therapy will be provided at your home until they feel you have accomplished all of your goals. * If you are using [facility] then Physical Therapy will be provided until they feel you are ready to start Outpatient Physical Therapy. * If you are not using home therapy then Outpatient Physical Therapy should start about 3-5 days from your day of surgery. Therapy will last about 6-10 weeks * You were shown a series of exercises in the hospital. Do these exercises three times each day including the exercises you were shown in physical therapy. * Get up and walk several times each day.~ For the first four weeks, try not to stand or walk for more than one hour at a time. If you do stand or walk for more than one hour, you will not hurt anything, but your leg will likely swell.~~ * As you feel comfortable, you may change from the walker or crutches to a cane and~then to independent walking. Medications: * Narcotic You will likely be sent home from the hospital with a prescription for the narcotic pain medication that worked best throughout your stay. * Aspirin Most patients will be required to take Aspirin 81mg twice a day for 6 weeks after surgery. This is obtained [id number] and a prescription is not necessary. * Other medications may be prescribed for specific circumstances. If you have any questions, please call the office at . * Resume previous home medications unless otherwise instructed TEDs/Elastic Stockings: The white elastic stockings help limit swelling and prevent blood clots from forming in your legs. The more you wear them, the more they work. Wear them for six weeks. Dressing Care: You will likely have a purple VAC dressing after surgery. This dressing will keep the incision dry and promote early healing. After about 7 days the batteries will wear out and the VAC will lose suction. Simply remove the dressing at that time and throw everything away, including the small suction machine. Then, you may leave the gabriela open to air or cover them with a dry dressing so they do not rub on your pants. The gabriela will be removed at your 2 week follow-up appointment. Showering: You may shower immediately with the purple VAC dressing. Let the shower spray hit your opposite side and slowly pat the plastic dry. Do not soak the dressing. After the dressing is removed you may shower normally with the gabriela exposed. Let soapy water run over the gabriela and pat them dry. Things To Watch For: * Drainage from the incision site that occurs more than one week after your henderson rgery. * Increased redness at the incision site. * Fever above 102 degrees Fahrenheit. * Unusual chest pain or shortness of breath. * Call [facility] at with any of the above problems Follow-Up Visit: Follow-up with Dr. Spangler 2-3 weeks after your day of surgery. An appointment was probably scheduled when you signed-up for surgery in the office. If you have any questions call Office Instructions: More detailed instructions as well as Frequently Asked Questions were provided in a folder by our office when you signed-up for surgery. Please review these instructions when you get home. If you have any further questions or concerns, please feel free to call the office at [phone] Pending Studies at Discharge: No Stand-Alone Forms: [facility], Smoking Cessation Medications and DC Order Prescriptions: Continued lisinopril-hydrochlorothiazide 20-12.5 mg Tablet 1 tab PO QAM RF: 0 tamsulosin 0.4 mg Capsule 0.4 mg PO QPM RF: 0 ibuprofen 200 mg Tablet 200 mg PO QID PRN (Reason: Pain) RF: 0 Humira 20 mg/0.4 mL Syringe Kit 40 mg SUBCUT DIRECTED RF: 0 aspirin 81 mg tablet,delayed release (DR/EC) 81 mg PO BID Qty: 84 RF: 0 multivitamin Capsule 1 cap PO QPM RF: 0 Discharge Orders: Discharge Order (Routine); Ordered 05/15/19 Ordered By: Sid Spangler Admission Data Admit Date/Time: 05/14/19 09:21 Attending Provider: Sid Spangler Admit Provider: Sid Spangler Primary Care Provider: Helga Ulrich Other Interventions: Discharge Summary Assessment (RN) Last Done: 05/15/19 06:45
[2019-05-15 07:02] LABS: BUN Creatinine Ratio 23.2 (10-20); Calcium 8.7 mg/dl (8.5-10.1); Creatinine Clr Calc Pharmacy 111.2 ml/min; Est GFR (African American) 105.4; Est GFR (Non-African American) 90.9; Potassium 3.7 mmol/L (3.5-5.1)
[2019-05-15] MEDS ORDERED: NON-FORMULARY MEDICATION (Adalimumab [Humira] 40 MG) SQ SCH (09:00)
[2019-05-15] MEDS ORDERED: LISINOPRIL/HCTZ 20/12.5MG 1 TAB TAB PO SCH (09:00)
[2019-05-15] MEDS ORDERED: MULTIVITAMIN TAB PO SCH (09:00)
== END 2019-05-15 07:10 | disposition home or self-care (01) | DRG 470 ==
LOC: ASU 05:00 → 3E 09:21

== ENCOUNTER 2019-12-23 05:07 | Observation (INO) ==
--- NOTE | 2019-12-05 14:43 | PAT Medication Instructions ---
Medication Instructions Date of Service December 05, 2019 Home Medications Humira 40 mg SUBCUT DIRECTED ibuprofen 400 mg PO QID PRN tamsulosin 0.4 mg PO QPM lisinopril-hydrochlorothiazide 1 tab PO QAM ASK your surgeon for instructions ibuprofen 400 mg PO QID PRN ASK your prescriber and surgeon Humira 40 mg SUBCUT DIRECTED DO NOT take the morning of surgery lisinopril-hydrochlorothiazide 1 tab PO QAM Take evening before surgery tamsulosin 0.4 mg PO QPM Other Notes If you have any questions please call us at [phone] or [phone] or [phone] or [phone]
--- NOTE | 2019-12-10 13:52 | Anesthesiology Consultation ---
Date of Service December 10, 2019 Assessment & Plan (1) Encounter for pre-operative examination: Per PAT assessment on 12/08: Travel screen- Patient reports travel [place] (no masks). Patient reports that on 12/17 and 12/19 he will accompany his to doctor appt in [place] but will remain in the car/limit contact, will wear mask at appt (reviewed with Dr. Leonard). No known COVID-19 positive contacts. No current COVID-19 related symptoms. Patient scheduled for 12/15 at surgeon's office per surgeon preop protocol. A waiting results.* - S/P Right LAN: 05/14/19: SAB x3 (attempt x 2 at L4-L5, successful at L3-L4) at [facility] Chart Review Chart Review: Acceptable Risk for Surgery (pending COVID testing) and Patient seen in Pre Admission Testing Teaching & Discussion Pre-Anesthesia Teaching/Discussion Notes: Instructed NPO after midnight before surgery,except medications with 15 cc of water. Medication instructions provided according to the PAT guidelines. History Surgery Operation Date: 12/23/19 07:30 Proposed Procedures p Bilateral Total Knee Arthroplasty - Sid Spangler, Height/Weight Height: 5 ft 10 in Weight: 116.3 kg Allergies Allergy/AdvReac Type Severity Reaction Status Date / Time Penicillins Allergy Unknown CHILD - Verified 12/10/19 12:54 UNKNOWN Medications Home Medications Medication Instructions Recorded Confirmed Last Taken Humira 40 mg SUBCUT DIRECTED 03/18/19 12/10/19 03/05/19 ibuprofen 400 mg PO QID PRN 03/18/19 12/10/19 05/13/19 20:00 tamsulosin 0.4 mg PO QPM 03/18/19 12/10/19 05/13/19 20:00 lisinopril-hydrochlorothiazide 1 tab PO QAM 12/05/19 12/10/19 Unknown Past Medical History Medical History History of nocturia no recent issues Hypertension Obesity Osteoarthritis Psoriatic arthritis on Humira Exercise / Class Metabolic Activity II 4-5 Yardwork/Stairs/Walk up hill Past Surgical History Surgical History (Updated 12/10/19 @ 14:11 by Jayleen Shemar) History of arthroscopic knee surgery RIGHT AND LEFT History of left hip replacement Left LAN: 03/26/19: SAB at [facility] History of total right hip arthroplasty Right LAN: 05/14/19: SAB x3 (attempt x 2 at L4-L5, successful at L3-L4) at [facility] History of vasectomy Hx of tonsillectomy Past Anesthesia History No Hx of Anesthesia Complications and No Family Hx of Anesthesia Complications History of PONV No Hx of PONV and No Hx of Motion Sickness Social History Smoking Status: Never smoker Do You Dip or Chew Tobacco: Yes (1 CAN PER DAY) Hx Alcohol Use: No Hx Substance Use: No substance use type: does not use Review of Systems Patient denies chest pain, shortness of breath, dyspnea on exertion, fever, chills, cough, wheezing, palpitations. Physical Exam Vital Signs VITALS BP 127/84 P 82 TEMP 98.0 SP02 97%Ra RESP 16 PHYSICAL Full neck and c-spine range of motion. Full TMJ range of motion. TMD 3 finger breaths Mallampati Score 3 Dentition: missing molars Lungs: clear throughout to auscultation Cardiac: regular rate and rhythm, no murmurs noted Spine: normal Carotid arteries: negative bruit Extremities: no edema Left sided lazy eye Testing Laboratory Results 12/10/19 14:06 12/10/19 14:06 PT 11.4 Seconds (9.0-12.0) 12/10/19 14:06 INR 1.1 (0.9-1.1) 12/10/19 14:06 APTT 30.2 Seconds (21.0-31.0) 12/10/19 14:06 Blood Type B Positive 12/10/19 14:06 Antibody Screen NEGATIVE 12/10/19 14:06 Electrocardiogram Date: 03/20/19 NSR at 72bpm. Chest X-Ray Date: 03/20/19 Findings: + NAD
[2019-12-10 14:35] LABS: Basophils # (auto) 0.04 K/uL (0-0.2); Basophils % (auto) 0.5 %; Eosinophils % (auto) 1.2 %; Hematocrit (blood only) 43.9 % (42-52); Hemoglobin 14.4 g/dL (14.0-18.0); Immature Granulocytes # (auto) 0.04 K/uL (0.00-0.02); Immature Granulocytes % (auto) 0.5 %; Lymphocytes # (auto) 1.02 K/uL (1.2-3.4); Lymphocytes % (auto) 12.1 %; Mean Corpuscular Hemoglobin 29.9 pg (25-34); Mean Corpuscular Hgb Conc 32.8 g/dL (32-36); Mean Corpuscular Volume 91.1 fL (80-100); Mean Platelet Volume 10.4 fL (7.4-10.4); Monocytes # (auto) 0.87 K/uL (0.11-0.59); Monocytes % (auto) 10.3 %; Neutrophils # (auto) 6.39 K/uL (1.4-6.5); Neutrophils % (auto) 75.4 %; Platelet Count 305 K/uL (130-400); RDW Coefficient of Variation 12.6 % (11.5-14.5); RDW Standard Deviation 42.3 fL (36.4-46.3); Red Blood Count 4.82 M/uL (4.7-6.1); White Blood Count 8.46 K/uL (4.8-10.8)
[2019-12-10 14:58] LABS: INR 1.1 (0.9-1.1); Partial Thromboplastin Ratio 1.1; Partial Thromboplastin Time 30.2 Seconds (21.0-31.0); Prothrombin Time 11.4 Seconds (9.0-12.0)
[2019-12-10 18:33] LABS: BUN Creatinine Ratio 14.3 (10-20); Calcium 9.3 mg/dl (8.5-10.1); Creatinine Clr Calc Pharmacy 106.6 ml/min; Est GFR (African American) 97.8; Est GFR (Non-African American) 84.4; Potassium 3.7 mmol/L (3.5-5.1)
--- NOTE | 2019-12-18 07:33 | History & Physical Report ---
Date of Service December 18, 2019 Assessment & Plan (1) Osteoarthritis of knees, bilateral: We will proceed with bilateral total knee arthroplasties. Postoperatively he will be started on aspirin for DVT prophylaxis and kept overnight in the hospital for postoperative medical management. He plans to use energy physical therapy upon discharge. Evita is a low risk for joint replacement surgery without any major comorbidities. Present on Admission?: Yes History of Present Illness Chief Complaint: Primary osteoarthritis of bilateral knees Primary Care Provider: Helga Ulrich Evita is a pleasant 54-year-old male who has been dealing with chronic increasing bilateral knee pain. X-rays and clinical examination have been diagnostic for primary osteoarthritis of both knees. After failing conservative treatment, he has elected to proceed with bilateral total knee arthroplasties. Allergies Allergy/AdvReac Type Severity Reaction Status Date / Time Penicillins Allergy Unknown CHILD - Verified 12/10/19 12:54 UNKNOWN Home Medications Home Medications Medication Instructions Recorded Confirmed Type Humira 40 mg SUBCUT DIRECTED 03/18/19 12/10/19 History ibuprofen 400 mg PO QID PRN 03/18/19 12/10/19 History tamsulosin 0.4 mg PO QPM 03/18/19 12/10/19 History lisinopril-hydrochlorothiazide 1 tab PO QAM 12/05/19 12/10/19 History Past Med/Surg History Medical History History of nocturia no recent issues Hypertension Obesity Osteoarthritis Psoriatic arthritis on Humira Surgical History History of arthroscopic knee surgery RIGHT AND LEFT History of left hip replacement Left LAN: 03/26/19: SAB at [facility] History of total right hip arthroplasty Right LAN: 05/14/19: SAB x3 (attempt x 2 at L4-L5, successful at L3-L4) at [facility] History of vasectomy Hx of tonsillectomy Social History Preferred Language: Pashto Communication Ability: Effective Stock Letterer Required: No Beliefs That Will Affect Care: None marital status: Current Living Situation: Spouse Feels Safe at Home: Yes Smoking Status: Never smoker Second Hand Exposure: Yes (FATHER SMOKED) ; Hx Alcohol Use: No Hx Substance Use: No Review of Systems Review of Systems: All systems reviewed & are unremarkable except as noted in HPI & below Physical Exam Constitutional: WD/WN, vitals as above Eyes: PERRL, conjunctivae normal, anicteric sclerae ENMT: external ear and nose normal, oropharynx normal Neck: trachea midline, no thyromegaly Respiratory: normal respiratory effort Cardiovascular: RRR, no murmur, no edema Gastrointestinal (Abdomen): normal bowel sounds, soft, nontender, no hepatosplenomegaly Musculoskeletal: On physical examination of the left knee there is a trace effusion. There is near full range of motion and no evidence of instability. There is significant tenderness palpation along the medial and lateral joint lines and over the distal femoral condyles. Psychiatric: A+Ox3, euthymic affect Results & Data Results & Data ([facility]) Diagnostic Findings Radiographs of the left knee demonstrate advanced osteoarthritis with joint space narrowing osteophyte formation and [id number] articulation. PG Care Time/CCT Total # of Minutes Spent Total Time Spent with Patient: Total time spent is greater than 50% in coordination of care (as documented) at patient's floor/unit and/or counseling patient: Coding Level of Care Code 26336 Initial Inpt Care Lvl 3 Diagnoses Osteoarthritis of knees, bilateral M17.0
[2019-12-23] MEDS ORDERED: dexAMETHasone 4 MG TAB PO SCH (06:00)
[2019-12-23] MEDS ORDERED: LR 500ML BOLUS, THEN 15ML/HR IV SCH (06:00)
[2019-12-23] MEDS ORDERED: ACETAMINOPHEN 500 MG TAB PO SCH (06:00)
[2019-12-23] MEDS ORDERED: GABAPENTIN 600 MG DOSE PO SCH (06:00)
[2019-12-23] MEDS ORDERED: TRANEXAMIC ACID 1,000 MG **IV Pre-op IV SCH (06:00)
[2019-12-23] MEDS ORDERED: CEFAZOLIN 2000MG 2,000 MG/15 ML SYR IV SCH (06:00)
[2019-12-23] MEDS ORDERED: FAMOTIDINE 20 MG TAB PO SCH (06:00)
[2019-12-23] MEDS ORDERED: TRANEXAMIC ACID 1,000 MG **IV Intra-op IV SCH (06:00)
[2019-12-23] MEDS ORDERED: LR 60ML/HR IV SCH (06:00)
[2019-12-23] MEDS ORDERED: ROPIVACAINE 0.5% HCL/PF 150 MG, BUPIVACAINE 0.5% MPF 30 ML, EPINEPHrine 30MG/30ML (OR U... INFIL SCH (06:00)
[2019-12-23] MEDS ORDERED: BUPIVACAINE LIPOSOME/PF 266 MG, BUPIVACAINE/EPINEPHRINE 50 ML, SODIUM CHLORIDE 0.9% 30 ... INFIL SCH (06:00)
[2019-12-23] MEDS ORDERED: BUPIVACAINE 0.5 % 5 MG/1 ML PF 10ML VIAL ONE (06:10)
[2019-12-23] MEDS ORDERED: BUPIVACAINE 0.25% 30 ML VIAL ONE (06:11)
--- NOTE | 2019-12-23 06:32 | History & Physical Bridge Note ---
Date of Service December 23, 2019 History & Physical Bridge Note I have examined the patient, reviewed the History & Physical and in the interval since the performance of the History & Physical I have noted the following changes of clinical significance: no changes noted
[2019-12-23] MEDS ORDERED: GLYCOPYRROLATE 0.2 MG/ML VIAL ONE (06:36)
[2019-12-23] MEDS ORDERED: LIDOCAINE HCL 2% 2 ML VIAL/AMP(20MG/ML) INFIL ONE (06:36)
[2019-12-23] MEDS ORDERED: DEXAMETHASONE SOD INJ 4 MG/ML VIAL ONE (06:36)
[2019-12-23] MEDS ORDERED: MIDAZOLAM HCL 1 MG/ML 2ML VIAL ONE ×2 (06:36→06:48)
[2019-12-23] MEDS ORDERED: PROPOFOL IV EMULSION 10 MG/ML 20 ML VIAL IV ONE ×4 (06:36→09:56)
[2019-12-23] MEDS ORDERED: ONDANSETRON INJ 2 MG/ML 2 ML VIAL ONE (06:36)
[2019-12-23] MEDS ORDERED: ORTHO JOINT ANESTHETIC ONE (06:57)
[2019-12-23] MEDS ORDERED: fentaNYL citrate 100 MCG/2 ML VIAL ONE ×2 (07:03→07:09)
[2019-12-23] MEDS ORDERED: ePHEDrine sulfate 50 MG/ML AMP IV PRN (07:33)
[2019-12-23] MEDS ORDERED: ATROPINE SULFATE 0.1 MG/ML 10ML SYR IV PRN (07:33)
--- NOTE | 2019-12-23 10:30 | Operative Report ---
PG Post Operative Report Pre & Post Diagnosis Operation Date: 12/23/19 07:15 Pre-Op Diagnosis: BILATERAL KNEE DEGENERATIVE JOINT DISEASE Post-Op Diagnosis: BILATERAL KNEE DEGENERATIVE JOINT DISEASE I identified the patient and participated in the time-out.: Yes Procedure Operation Date: 12/23/19 07:15 Actual Procedures p Bilateral Total Knee Arthroplasty(Bilateral) - Sid Spangler DO Surgeon Sid Spangler DO System Auditor Sid Brewster PAC Estimated Blood Loss 50 Findings Consistent with Post-Op Diagnosis Specimens Bilateral femoral and tibial bone Complications none Disposition Disposition: Recovery Room Indications Evita is a pleasant 54-year-old male who is been dealing with chronic increasing bilateral knee pain. X-rays clinical examination have been diagnostic for primary osteoarthritis of both knees. After failing conservative treatment, he elected proceed with bilateral total knee arthroplasties. Description of Procedure Jaycee arrived [facility] for the above procedure. He was seen in the preoperative holding area and the operative extremities were identified and signed. He was given a preoperative antibiotic, TXA, a spinal anesthetic and bilateral adductor nerve blocks. He was taken back to the operating room and laid on the table in supine position. He was given basic sedation. The knees were then prepped and draped in sterile fashion. A timeout was done, and the patient and the operative extremities were properly identified. Right Knee Implants used: I used a [employer] Person[employer] total knee arthroplasty system with a size 9 standard femur, G tibia, 35 patella, and a size 12 medial congruent polyethylene bearing. All components were cemented in place with Palacos G cement. A midline incision was made directly over the patella. Dissection was taken down to the extensor mechanism. A subvastus arthrotomy was used. The medial retinaculum was released and the fat pad was mostly excised. The knee was flexed and the ACL, PCL, and meniscus were removed. A drill was sent down the center of the femoral canal followed by an intramedullary viola. Off that viola a distal femoral cutting block was placed. 9 mm was resected off the distal femur at 5 of valgus. A posterior referencing AP sizing guide was then placed on the distal femur. The femur measured to be a size 9. 2 drill holes were placed in 3 of external rotation. A 4-in-1 cutting block was then impacted into place. Anterior, posterior, and chamfer cuts were then made. The proximal tibia was then exposed. An external tibial alignment guide was placed. A tibial cut guide was then anchored in place to resect 2 mm off the low medial side. The proximal tibia was then resected. The tibia measured to be a size G. The tibial plate was then placed in the appropriate rotation and the tibia was drilled and punched. The posterior aspect of the knee was then opened up and any additional meniscus fragments and osteophytes were removed. Trial components were then placed. I used a size 12 polyethylene insert. The knee was brought through a full range of motion and felt to be stable. The patella was then everted and 8 mm was resected off the posterior aspect of the patella. The patella measured to be a size 35. 3 peg holes were then drilled. A trial patella was placed. The knee was once again brought through a full range of motion and felt to be stable. Trial components were then removed. The surrounding soft tissues were injected with 50 cc of an orthopedic pain control cocktail. All components were then cemented into place with Palacos G cement. The final polyethylene insert was then snapped into place and the anterior bar was locked. Once cement was dry the tourniquet was deflated. Hemostasis was obtained. A dilute betadyne lavage was then done for 3 minutes. The joint was then irrigated with normal saline solution. The subvastus arthrotomy was then closed with #1 Vicryl suture. The skin was closed with 2-0 Vicryl, 3-0V lock suture, and gabriela. A soft compressive dressing was placed. Left Knee Implants used: I used a [employer] Person[employer] total knee arthroplasty system with a size 10 standard femur, G tibia, 35 patella, and a size 11 medial congruent polyethylene bearing. All components were cemented in place with Palacos G cement. A midline incision was made directly over the patella. Dissection was taken down to the extensor mechanism. A subvastus arthrotomy was used. The medial retinaculum was released and the fat pad was mostly excised. The knee was flexed and the ACL, PCL, and meniscus were removed. A drill was sent down the center of the femoral canal followed by an intramedullary viola. Off that viola a distal femoral cutting block was placed. 9 mm was resected off the distal femur at 5 of valgus. A posterior referencing AP sizing guide was then placed on the distal femur. The femur measured to be a size 10. 2 drill holes were placed in 3 of external rotation. A 4-in-1 cutting block was then impacted into place. Anterior, posterior, and chamfer cuts were then made. The proximal tibia was then exposed. An external tibial alignment guide was placed. A tibial cut guide was then anchored in place to resect 2 mm off the low medial side. The proximal tibia was then resected. The tibia measured to be a size G. The tibial plate was then placed in the appropriate rotation and the tibia was drilled and punched. The posterior aspect of the knee was then opened up and any additional meniscus fragments and osteophytes were removed. Trial components were then placed. I used a size 11 medial congruent polyethylene insert. The knee was brought through a full range of motion and felt to be stable. The patella was then everted and 8 mm was resected off the posterior aspect of the patella. The patella measured to be a size 35. 3 peg holes were then drilled. A trial patella was placed. The knee was once again brought through a full range of motion and felt to be stable. Trial components were then removed. The surrounding soft tissues were injected with 50 cc of an orthopedic pain control cocktail. All components were then c emented into place with Palacos G cement. The final polyethylene insert was then snapped into place and the anterior bar was locked. Once cement was dry the tourniquet was deflated. Hemostasis was obtained. A dilute betadyne lavage was then done for 3 minutes. The joint was then irrigated with normal saline solution. The subvastus arthrotomy was then closed with #1 Vicryl suture. The skin was closed with 2-0 Vicryl, 3-0V lock suture, and gabriela. A soft compressive dressing was placed. He was then transferred to a hospital bed and taken to the postanesthesia care unit in stable condition. He tolerated the procedure well. Sid Brewster PA-C, was present for the entire procedure. He was critical for patient positioning, prepping, draping, retraction exposure, wound closure and application of sterile dressing. I attest to the content of the Intraoperative Record and any orders documented therein. Any exceptions are noted below.
--- NOTE | 2019-12-23 11:02 | XRay Report ---
XR knee LT 1 or 2V routine CLINICAL HISTORY: Postoperative evaluation. COMPARISON: Knee radiographs January 09, 2019. FINDINGS: Alignment of the total left knee arthroplasty is anatomic. There is no periprosthetic frac ture or unexpected radiopaque foreign body. There are skin gabriela. IMPRESSION: Expected findings following total left knee arthroplasty. ACT 112: Negative or not required by law. Electronically signed by: Dangelo Le M.D. 12/23/2019 11:01 AM
--- NOTE | 2019-12-23 11:03 | XRay Report ---
XR knee RT 1 or 2V routine CLINICAL HISTORY: Surgical Post Op COMPARISON: Knee radiographs January 09, 2019. FINDINGS: Alignment of the total right knee arthroplasty is anatomic. There is no fracture or unexpe cted radiopaque foreign body. There are skin gabriela. IMPRESSION: Expected findings following total right knee arthroplasty. ACT 112: Negative or not required by law. Electronically signed by: Dangelo Le M.D. 12/23/2019 11:01 AM
--- NOTE | 2019-12-23 11:47 | Anesthesiology Progress Note ---
Date of Service December 23, 2019 Anesthesia Post Procedure Vital Signs Vital Signs: Temp Pulse Pulse Resp BP Pulse Ox 12/23/19 11:40 71 18 121/77 96 12/23/19 11:30 73 19 112/69 96 12/23/19 11:20 36.3 C L 78 19 108/67 93 12/23/19 11:10 72 20 118/74 93 12/23/19 11:00 78 21 122/75 94 12/23/19 10:50 83 20 122/75 96 12/23/19 10:40 70 20 110/79 95 12/23/19 10:35 36.7 C 74 20 123/72 96 12/23/19 05:39 37 C 82 18 164/92 H 95 Pain Intensity Bilateral Knee: Pain Intensity: 2 Transfer of Care Handoff Completed per policy Notes Mental Status: alert / awake / arousable and participated in evaluation Nausea / Vomiting: adequately controlled Pain: adequately controlled Airway Patency, RR, SpO2: stable & adequate BP & HR: stable & adequate Hydration State: stable & adequate Neuraxial Anesthesia: was administered and sensory block is resolving Anesthetic Complications: no major complications apparent and Pt Satisfied with anesthetic care
[2019-12-23] MEDS ORDERED: NON-FORMULARY MEDICATION (Adalimumab [Humira] 40 MG) SQ SCH (12:02)
[2019-12-23] MEDS ORDERED: ONDANSETRON INJ 2 MG/ML 2 ML VIAL IV PRN (12:02)
[2019-12-23] MEDS ORDERED: MAGNESIUM HYDROXIDE SUSP 30 ML UDC PO PRN (12:02)
[2019-12-23] MEDS ORDERED: NALOXONE HCL 0.4 MG/1 ML VIAL/CARP IV PRN (12:02)
[2019-12-23] MEDS ORDERED: OXYCODONE HCL IR 5 MG TAB (IMMEDIATE RELEASE) PO PRN (12:02)
[2019-12-23] MEDS ORDERED: bisacodyL 10 MG SUPP PR PRN (12:02)
[2019-12-23] MEDS ORDERED: HYDROmorphone INJ 0.5 MG/0.5 ML SYR IV PRN (12:02)
[2019-12-23] MEDS ORDERED: METOCLOPRAMIDE HCL INJ 5 MG/ML 2 ML VIAL IV PRN (12:02)
[2019-12-23] MEDS: SODIUM CHLORIDE 0.9% 1000ML 1,000 ML IV SCH ×2 (13:02→21:27)
[2019-12-23] MEDS: ACETAMINOPHEN 500 MG TAB PO SCH ×2 (13:15→21:26)
[2019-12-23] MEDS: KETOROLAC 30 MG/ML VIAL IV SCH ×2 (13:15→17:58)
[2019-12-23] MEDS: CEFAZOLIN 2000MG 2,000 MG/15 ML SYR IV SCH (15:28)
[2019-12-23] MEDS: ASPIRIN 81 MG ECTAB PO SCH (21:26)
[2019-12-23] MEDS: SENNA 8.6 MG TAB PO SCH (21:26)
[2019-12-23] MEDS: TAMSULOSIN HCL 0.4 MG CAP PO SCH (21:26)
[2019-12-23] MEDS: DOCUSATE SODIUM 100 MG CAP PO SCH (21:26)
[2019-12-24] MEDS: KETOROLAC 30 MG/ML VIAL IV SCH ×5 (00:04→23:51)
[2019-12-24] MEDS: CEFAZOLIN 2000MG 2,000 MG/15 ML SYR IV SCH (00:04)
[2019-12-24 05:42] LABS: Hemoglobin 11.3 g/dL (14.0-18.0); Mean Corpuscular Hgb Conc 31.4 g/dL (32-36); Mean Corpuscular Volume 92.3 fL (80-100); Mean Platelet Volume 10.2 fL (7.4-10.4); Platelet Count 263 K/uL (130-400); RDW Coefficient of Variation 12.5 % (11.5-14.5); RDW Standard Deviation 42.1 fL (36.4-46.3); White Blood Count 11.81 K/uL (4.8-10.8)
[2019-12-24] MEDS: ACETAMINOPHEN 500 MG TAB PO SCH ×3 (05:50→21:23)
[2019-12-24 06:12] LABS: BUN Creatinine Ratio 19.9 (10-20); Calcium 8.2 mg/dl (8.5-10.1); Creatinine Clr Calc Pharmacy 98.5 ml/min; Est GFR (African American) 89.1; Est GFR (Non-African American) 76.9; Potassium 4.5 mmol/L (3.5-5.1)
--- NOTE | 2019-12-24 07:01 | Orthopedic Progress Note ---
Date of Service December 24, 2019 Assessment & Plan (1) History of total bilateral knee replacement: Overall he is not having too much pain in the knees. He will be seen by physical therapy this morning for ambulation and range of motion exercises. He is on aspirin for DVT prophylaxis. We will plan to discharge him to home tomorrow. Present on Admission?: Yes Yosef Champion was seen and examined at bedside this morning. Overall he is doing very well. He is not having too much pain in his knees. He has been up and ambulating to the bathroom. He has no complaints. Physical Exam Musculoskeletal: On physical examination of both knees, the dressings are clean and dry. His legs are out in full extension. He has active dorsiflexion and plantarflexion of both ankles. Results & Data ([facility]) Vital Signs (Past 12 Hours) Vital Signs Temp Pulse Resp BP Pulse Ox 12/24/19 03:58 36.5 C 65 20 134/73 99 12/23/19 23:23 36.5 C 60 18 113/70 97 12/23/19 20:05 36.6 C 69 16 115/71 98 Laboratory Results H & H 12/10/19 12/24/19 Range/Units 14:06 05:16 Hgb 14.4 11.3 L (14.0-18.0) g/dL Hct 43.9 36.0 L (42-52) % Coagulation 12/10/19 Range/Units 14:06 INR 1.1 (0.9-1.1) Diagnostic Findings Postoperative x-rays of both knees show the prosthesis to be in anatomic alignment without any evidence of fracture, dislocation, or loosening. PG Care Time/CCT Total # of Minutes Spent Total Time Spent with Patient: Total time spent is greater than 50% in coordination of care (as documented) at patient's floor/unit and/or counseling patient: Coding Level of Care Code None Diagnoses History of total bilateral knee replacement Z96.653
[2019-12-24] MEDS ORDERED: dexAMETHasone 4 MG TAB PO SCH (08:00)
[2019-12-24] MEDS: DOCUSATE SODIUM 100 MG CAP PO SCH ×3 (08:31→21:23)
[2019-12-24] MEDS: LISINOPRIL/HCTZ 20/25MG 1 TAB PO SCH (08:31)
[2019-12-24] MEDS: ASPIRIN 81 MG ECTAB PO SCH ×2 (08:31→21:23)
[2019-12-24] MEDS: MULTIVITAMIN TAB PO SCH (08:32)
[2019-12-24] MEDS: SENNA 8.6 MG TAB PO SCH ×2 (20:22→21:23)
[2019-12-24] MEDS: TAMSULOSIN HCL 0.4 MG CAP PO SCH (21:23)
[2019-12-25] MEDS: KETOROLAC 30 MG/ML VIAL IV SCH (05:28)
[2019-12-25] MEDS: ACETAMINOPHEN 500 MG TAB PO SCH (05:28)
--- NOTE | 2019-12-25 06:54 | Orthopedic Progress Note ---
Date of Service December 25, 2019 Assessment & Plan (1) History of total bilateral knee replacement: Overall he is doing very well. Is not having much pain in his knees. He will be seen by physical therapy again today for ambulation and range of motion exercises. He is on aspirin for DVT prophylaxis. He can be discharged home later today. He will follow-up with orthopedics in 2 weeks. Present on Admission?: Yes Subjective Jaycee was seen and examined at bedside this morning. Overall he is doing very well. He was ambulating well yesterday with physical therapy. He is really not having much pain in his knees. He is happy with his progress and has no complaints. Physical Exam Musculoskeletal: On physical examination of his knees, the dressings are clean and dry. He can put his knees out to full extension. He is neurovascular intact. Results & Data ([facility]) Vital Signs (Past 12 Hours) Vital Signs Temp Pulse Resp BP Pulse Ox 12/24/19 23:05 36.6 C 68 18 130/81 99 PG Care Time/CCT Total # of Minutes Spent Total Time Spent with Patient: Total time spent is greater than 50% in coordination of care (as documented) at patient's floor/unit and/or counseling patient: Coding Level of Care Code None Diagnoses History of total bilateral knee replacement Z96.653
--- NOTE | 2019-12-25 06:55 | Discharge Summary ---
Date of Service December 25, 2019 Admission HPI Per Admitting Provider Evita is a pleasant 54-year-old male who has been dealing with chronic increasing bilateral knee pain. X-rays and clinical examination have been diagnostic for primary osteoarthritis of both knees. After failing conservative treatment, he has elected to proceed with bilateral total knee arthroplasties. Principal Diagnosis Bilateral total knee arthroplasties Discharge Data Allergies Allergy/AdvReac Type Severity Reaction Status Date / Time Penicillins Allergy Unknown CHILD - Verified 12/23/19 05:35 UNKNOWN Consultations 12/23/19 12:02 Consult Case Management - Discharge Planning Routine Procedures Performed Operation Date: 12/23/19 07:15 Actual Procedures p Bilateral Total Knee Arthroplasty(Bilateral) - Sid Spangler DO Ordered Studies 12/23/19 05:00 US - OR guided needle placemen Routine Hospital Course (1) History of total bilateral knee replacement: On December 23, [address] [facility] and underwent bilateral total knee arthroplasties without complications. He had a spinal anesthetic. Postoperatively he was started on aspirin for DVT prophylaxis and transferred to the general orthopedic floors. His hospital course was uneventful. On postop day #1 his H&H was stable and his pain is well controlled. He was able to participate well with physical therapy doing ambulation and range of motion exercises. On postop day #2 he continued to do well. His knee pain was mild. He was then discharged home. He will follow-up with orthopedics in 2 weeks. Total Time Total Time Spent Total Time Spent (In Minutes): 20 Discharge Plan Discharge Items Patient Disposition: Home - Home Health Services Reason For Visit: BILATERAL KNEE DEGENERATIVE JOINT DISEASE Discharge Diagnosis: Bilateral total knee arthroplasties Activity: As commented below Non-emergency contact: Surgeon Call non-emergency contact if: your wound has increased redness and your wound has increased drainage Follow-up/Referrals: Helga Ulrich CRNP [Primary Care Provider] - Diet: Regular Addtl Attending Provider Instructions: Activity and Therapy Recommendations: * If you are using [facility] then therapy will be provided at your home until they feel you have accomplished all of your goals. * If you are using [facility] then Physical Therapy will be provided until they feel you are ready to start Outpatient Physical Therapy. * If you are not using home therapy then Outpatient Physical Therapy should start about 3-5 days from your day of surgery. Therapy will last about 6-10 weeks * It is important not to put a pillow under your knee when you are relaxing or sleeping. It is just as important to make sure you are getting your knee perfectly straight as it is to regain your knee bend. * You were shown a series of exercises in the hospital. Do these exercises three times each day including the exercises you were shown in physical therapy. * Get up and walk several times each day. For the first four weeks, try not to stand or walk for more than one hour at a time. If you do stand or walk for more than one hour, you will not hurt anything, but your leg will likely swell. * As you feel comfortable, you may change from the walker or crutches to a cane and then to independent walking. Medications: * Narcotic You will likely be sent home from the hospital with a prescription for the narcotic pain medication that worked best throughout your stay. * Aspirin Most patients will be required to take Aspirin 81mg twice a day for 6 weeks after surgery. This is obtained [id number] and a prescription is not necessary. * Other medications may be prescribed for specific circumstances. If you have any questions, please call the office at . * Resume previous home medications unless otherwise instructed TEDs/Elastic Stockings: The white elastic stockings help limit swelling and prevent blood clots from forming in your legs.~ The more you wear them, the more they work. Wear them for six weeks. Dressing Care: Leave the silver dressing on for 7 days. After 7 days you may remove the dressing. If the incision is not draining then you may leave the gabriela open to air. If there is a little bit of drainage or if the gabriela are getting stuck on your clothing then cover the incision with a dry dressing. The gabriela will be removed at your 2 week follow-up appointment. Showering: You may shower with the silver dressing in place. Do not scrub or soak the dressing. Pat it dry. Once the dressing is removed you may shower with the gabriela exposed. Let the soapy shower water run over the gabriela and pat them dry. Do not scrub or soak the incision. Things To Watch For: * Drainage from the incision site that occurs more than one week after your surgery. * Increased redness at the incision site. * Fever above 102 degrees Fahrenheit. * Unusual chest pain or shortness of breath. * Call [facility] at with any of the above problems Follow-Up Visit: Follow-up with Dr. Spangler's PA (Sid Brewster) 2-3 weeks after your day of surgery. He will remove your gabriela and answer any questions. If you have any additional questions or concerns, Dr Spangler is usually in the office at the same time and will be available An appointment was probably scheduled when you signed-up for surgery in the office. If you have any questions call Office Instructions: More detailed instructions as well as Frequently Asked Questions were provided in a folder by our office when you signed-up for surgery. Please review these instructions when you get home. If you have any further questions or concerns, please feel free to call the office at [phone] Pending Studies at Discharge: No Stand-Alone Forms: My [facility], Smoking Cessation Medications and DC Order Prescriptions: New aspirin 81 mg Tablet,Delayed Release (Dr/Ec) 81 mg PO BID 42 Days Qty: 0 RF: 0 Continued lisinopril-hydrochlorothiazide 20-25 mg Tablet 1 tab PO QAM RF: 0 tamsulosin 0.4 mg Capsule 0.4 mg PO QPM RF: 0 ibuprofen 200 mg Tablet 400 mg PO QID PRN (Reason: Pain) RF: 0 Humira 20 mg/0.4 mL Syringe Kit 40 mg SUBCUT DIRECTED RF: 0 Discharge Orders: Discharge Order (Routine); Ordered 12/25/19 Ordered By: Sid Spangler Admission Data Admit Date/Time: 12/23/19 10:38 Attending Provider: Sid Spangler Admit Provider: Sid Spangler Primary Care Provider: Helga Ulrich Coding Level of Care Code D/C Day Management <30 mins Diagnoses History of total bilateral knee replacement Z96.653
[2019-12-25] MEDS: MULTIVITAMIN TAB PO SCH (07:30)
[2019-12-25] MEDS: LISINOPRIL/HCTZ 20/25MG 1 TAB PO SCH (07:30)
[2019-12-25] MEDS: DOCUSATE SODIUM 100 MG CAP PO SCH (07:30)
[2019-12-25] MEDS: ASPIRIN 81 MG ECTAB PO SCH (07:30)
== END 2019-12-25 09:34 | disposition home health service (06) ==
LOC: 3E 05:07 → ASU 05:07